=== PATIENT | male | born 1955 | race Caucasian/White ===

== ENCOUNTER → 2023-09-19 12:00 | Outpatient (REF) | payer OTHER, SELFPAY ==
--- NOTE | 2023-09-21 08:28 | PN.DIAED16 ---
This is to notify you that your patient with diabetes, MEÑO ZELAYA ( 1955), has attended the entire series of Diabetes Self-Management Education Classes.
Class 1 (120 minutes): Diabetes Overview - monitoring, stress/psychosocial adjustment, support, goal setting
Class 2 (120 minutes): Meal Planning - serving sizes, menu plans
Class 3 (120 minutes): Introduction to Carbohydrate Counting, Analyzing Food Labels
Class 4 (120 minutes): Medication, Exercise and Activity
Class 5 (120 minutes): Sick Day Management, Strategies to Reduce Complications, Problem Solving, Resources
The following behavioral goals were identified:
Exercise more often
Make better food choices
Follow meal plan
Reduce portion sizes
Follow monitoring times
A follow-up call will be made within three to six months to evaluate attainment of these goals and to check post-program Hemoglobin A1c and overall progress. All class participants are encouraged to contact me if I can be any further assistance in
learning how to manage their diabetes.
Sincerely,
--- NOTE | 2023-09-27 08:49 | PN.DIAED04 ---
Education Record
- Education Record
Class Attended: Class 5
DSME Class Series Code: [id number]
Instructor: Registered Nurse (Yani Robertson, RN, BSN, [facility])
Class Curriculum:
Outpatient Diabetes Education Program:
Class 5 (120 minutes)
Prevent, detect, and treat acute complications
Prevent, detect, and treat chronic complications through risk reduction
Develop personal strategies to address psychosocial issues and concerns
Development of diabetes self-management support plan
Letter to physician with DSMS plan attached sent
Class Length (mins): 120
Post-Program Knowledge: Demonstrates competency
Post-Test Score (%): 88
Post-Program Assessment
- Post-Program Assessment
Actual Weight: 228 lb
Blood pressure: 122/75
Post-Program Depression Survey Score: 1
Reviewing Previous Goals?: Yes
Pre-Program Depression Survey Score: 2
- Goals 1 Evaluation
Goals To Be Evaluated: Exercise more often
- Goals 2 Evaluation
Goals To Be Evaluated: Make better food choices. Follow meal plan. Reduce portion sizes
- Goals 3 Evaluation
Goals To Be Evaluated: Follow monitoring times
== END ==
LOC: DES 12:00
PROVIDERS: ATTENDING PHYSICIAN Family Medicine
DX: E11.9 Type 2 diabetes mellitus without complications (principal)
CPT/HCPCS: 99078

== ENCOUNTER → 2024-02-14 06:30 | Day surgery (SDC) | payer OTHER, SELFPAY ==
[2024-02-14 07:38] LABS: Glucose - Point of Care 115 mg/dl (70-99)
== END ==
LOC: GI 06:30
PROVIDERS: ATTENDING PHYSICIAN Internal Medicine Gastroenterology
DX: R19.5 Other fecal abnormalities (principal); Z12.11 Encounter for screening for malignant neoplasm of colon; K57.30 Diverticulosis of large intestine without perforation or abscess without bleeding; K64.8 Other hemorrhoids; K63.89 Other specified diseases of intestine; D12.2 Benign neoplasm of ascending colon
CPT/HCPCS: 45385; 45380; 88305; 82962

== ENCOUNTER → 2024-03-12 08:11 | Outpatient (REF) | payer OTHER, SELFPAY | LOC: RAD 08:11 | PROVIDERS: ATTENDING PHYSICIAN Internal Medicine Gastroenterology; FAMILY PHYSICIAN Family Medicine | DX: K38.8 Other specified diseases of appendix (principal) | CPT/HCPCS: 74177; Q9967 ==

== ENCOUNTER 2025-04-03 17:30 | Emergency (ER) | payer OTHER, SELFPAY ==
[2025-04-03 17:42] VITALS: BP 134/89
[2025-04-03 18:10] VITALS: BP 127/93; BMI 31.1
--- NOTE | 2025-04-03 18:39 | ED.GENMED ---
History of Present Illness
General
Chief Complaint: Ear Problem
Time Seen by Provider: 04/03/25 17:47
History of Present Illness
History of Present Illness:
69-year-old male presents due to a foreign body in the right ear canal. He suspects that he has had a piece of his hearing aid embedded for at least 2 weeks.
Review of Systems
Review of Systems
Allergies reviewed?: Yes
All Other Systems: ROS reviewed and negative except as documented in HPI and ROS
Phy Exam
Physical Exam
Physical Exam:
GEN: Well appearing, NAD, WDWN
HEENT: Oral mucosa moist, no scleral icterus. Plastic foreign body in the right ear canal
Cardiac: Regular rate
Lung: No respiratory distress, no tachypnea
MSK: No gross deformity or injuries
Skin: Good color, no pallor or jaundice, no rashes
Neuro: AO x3, moves all extremities freely
Psych: Calm, cooperative
Course
Vital Signs
Initial and Last Documented VS:
Initial Vital Signs
Temp Pulse Resp BP Pulse Ox
98.2 F 75 16 134/89 98
04/03/25 17:42 04/03/25 17:42 04/03/25 17:42 04/03/25 17:42 04/03/25 17:42
Last Documented Vital Signs
Temp Pulse Resp BP Pulse Ox
98.2 F 84 16 127/93 96
04/03/25 17:42 04/03/25 18:14 04/03/25 17:42 04/03/25 18:10 04/03/25 18:39
Procedures
Foreign Body Removal-Ear
Right External canal:
Tenderness: mild
Any local drainage: none
External ear canal cleaned with removal of cerumen using: curette
Removal of foreign body using: alligator forceps
Exam of canal after removal: otitis externa
MDM/Problems Addressed
MDM/Problems Addressed:
Evidence of otitis externa noted after removal thus we will start the patient on ofloxacin drops
*Pulse Oximetry
SaO2: 96
Oxygen Mode of Delivery: Room air
Patient hypoxic: no
*Critical Care Note
Total Time (30-74mins, 75-104mins- exclusive of procedures): Not Applicable
ED Attending Note
-
Portions of this chart may have been created with voice recognition software.� Occasional wrong word or��sound alike� substitutions may have occurred due to the inherent limitations of voice recognition software.
Discharge Plan
Departure
Patient Disposition: Home (Routine Discharge)
Date of Disposition: 04/03/25
Time of Disposition: 18:39
Patient with high blood pressure during this ER visit?: No
Discharge Problem:
Acute foreign body of right ear, Otitis externa
Instructions: Foreign Body in Ear (DC)
Prescriptions:
New
ofloxacin 0.3 % drops
10 drp otic (ear) BID 7 Days Qty: 10 0RF
Referrals:
Danny Duncan DO [Family Provider, Family Practice]
Interventions
Interventions:
*Risk Screen - Suicide Last Done: 04/03/25 17:42
*General Assessment Last Done: 04/03/25 18:12
*Neglect/Abuse Screening Last Done: 04/03/25 17:42
*ED- Fall Risk Assessment Last Done: 04/03/25 17:42
*ED COVID-19 Vaccine History Last Done: 04/03/25 18:12
*Nursing Disposition Last Done: 04/03/25 18:50
Discharge Date and Time
Discharge Date/Time: 04/03/25 18:51
Print Language: WOLOF
== END 2025-04-03 18:51 | disposition home or self-care (01) ==
LOC: EMR 17:30
PROVIDERS: EMERGENCY PHYSICIAN Emergency Medicine; FAMILY PHYSICIAN Family Medicine
DX: T16.1XXA Foreign body in right ear, initial encounter (principal); W44.G1XA Audio device entering into or through a natural orifice, initial encounter; H60.91 Unspecified otitis externa, right ear
CPT/HCPCS: 99282; 69200